=== PATIENT | male | born 1995 | race Caucasian/White ===

== ENCOUNTER 2020-01-29 08:53 | Emergency (ER) | payer BC ==
[~2020-01-29] VITALS: Ht 180.3 cm; Wt 86.2 kg
--- NOTE | 2020-01-29 09:12 | NUR ---
Pt c/o dyspnea increasing over last 3 days, pt bought OTC inhailer which helped somewhat until yesterday, also intermittant dry cough. Pt has occasional chest "tightness" but denies dizziness, fever, n/v, no other complaints, no distress noted.
--- NOTE | 2020-01-29 09:57 | NUR ---
Swabed pt for covid, took to lab.
[2020-01-29 10:06] LABS: BASOPHILS # (AUTO) 0.1 K/uL (0.0-8.0); BASOPHILS % (AUTO) 0.5 % (0.0-2.0); EOSINOPHILS # (AUTO) 0.1 K/uL (0.0-0.7); EOSINOPHILS % (AUTO) 0.8 % (0.0-7.0); HEMATOCRIT 42.7 % (36.7-47.1); HEMOGLOBIN 14.8 g/dL (12.5-16.3); LYMPHOCYTES # (AUTO) 2.2 K/uL (20.0-40.0); LYMPHOCYTES % (AUTO) 15.9 % (20.5-51.5); MEAN CORPUSCULAR HEMOGLOBIN 30.1 uug (23.8-33.4); MEAN CORPUSCULAR HGB CONC 35 g/dL (32.5-36.3); MEAN CORPUSCULAR VOLUME 86.9 fL (73.0-96.2); MONOCYTES # (AUTO) 0.6 K/uL (2.0-10.0); MONOCYTES % (AUTO) 4.4 % (0.0-11.0); NEUTROPHILS # (AUTO) 10.9 K/uL (1.8-8.9); NEUTROPHILS % (AUTO) 78.4 % (38.5-71.5); PLATELET COUNT (AUTO) 189 K/uL (152-348); RED BLOOD CELL COUNT(AUTO) 4.92 MIL/uL (4.06-5.63)
[2020-01-29 10:28] LABS: CREATININE 1.2 mg/dL (0.6-1.3); POTASSIUM 4.3 mmol/L (3.5-5.1)
[2020-01-29 10:41] LABS: BILIRUBIN,TOTAL 0.6 mg/dL (0.2-1.0); TOTAL PROTEIN, SERUM 7.6 g/dL (6.4-8.2)
[2020-01-29] MEDS ORDERED: AZIT250T PO (10:51)
[2020-01-29] MEDS ORDERED: IPRA12.9 INH (10:51)
--- NOTE | 2020-01-29 11:12 | NUR ---
RX called to pharmacy by ALEJANDRO Salamanca. Gave pt d/c instructions, pt verbalized understanding.
[2020-01-29 11:23] VITALS: BP 122/47
== END 2020-01-29 11:25 | disposition home or self-care (01) ==
LOC: ER 08:53
DX: R06.02 Shortness of breath (principal); R03.0 Elevated blood-pressure reading, without diagnosis of hypertension; Z11.59 Encounter for screening for other viral diseases
CPT/HCPCS: 36415; 71045; 80053; 83880; 84145; 84484; 85025; 85379; 93005; 99285; U0003; 70030-TC; A4663

== ENCOUNTER 2020-04-08 18:24 | Emergency (ER) | payer BC ==
[~2020-04-08] VITALS: Ht 180.3 cm; Wt 98.0 kg
[~2020-04-08 18:24] MED LIST: AZIT250T PO; IPRA12.9 INH
[2020-04-08] MEDS ORDERED: IV NORMAL SALINE 1000 ML BAG IV ONE (19:00)
--- NOTE | 2020-04-08 19:00 | NUR ---
PATIENT ARRIVED AT THE ER WITH C/O OF THROAT PAIN, CHOKING SENSATION X 3DAYS.
[2020-04-08] MEDS ORDERED: IV NORMAL SALINE 250 ML IV ONE (19:09)
[2020-04-08] MEDS ORDERED: IOHEXOL 300MG/ML 100 ML INFUS..BTL ONE (19:09)
[2020-04-08] MEDS ORDERED: SWABABLE VALVE TRANSFER SET EA MC ONE (19:09)
[2020-04-08 19:20] LABS: BASOPHILS # (AUTO) 0.1 K/uL (0.0-8.0); BASOPHILS % (AUTO) 0.9 % (0.0-2.0); EOSINOPHILS # (AUTO) 0.4 K/uL (0.0-0.7); HEMATOCRIT 42.4 % (36.7-47.1); HEMOGLOBIN 14.4 g/dL (12.5-16.3); LYMPHOCYTES % (AUTO) 33.4 % (20.5-51.5); MEAN CORPUSCULAR HEMOGLOBIN 29.6 uug (23.8-33.4); MEAN CORPUSCULAR HGB CONC 34 g/dL (32.5-36.3); MEAN CORPUSCULAR VOLUME 87.2 fL (73.0-96.2); MONOCYTES # (AUTO) 0.7 K/uL (2.0-10.0); MONOCYTES % (AUTO) 5.9 % (0.0-11.0); NEUTROPHILS # (AUTO) 6.8 K/uL (1.8-8.9); NEUTROPHILS % (AUTO) 56.8 % (38.5-71.5); PLATELET COUNT (AUTO) 203 K/uL (152-348); RED BLOOD CELL COUNT(AUTO) 4.86 MIL/uL (4.06-5.63)
[2020-04-08 19:40] LABS: BILIRUBIN,DIRECT 0.1 mg/dL (0.0-0.2); BILIRUBIN,TOTAL 0.3 mg/dL (0.2-1.0); CREATININE 1.1 mg/dL (0.6-1.3); POTASSIUM 3.7 mmol/L (3.5-5.1); TOTAL PROTEIN, SERUM 7.1 g/dL (6.4-8.2)
[2020-04-08] MEDS ORDERED: MORPHINE SULFATE 2 MG/1 ML DISP.SYRIN IV ONE (19:45)
[2020-04-08] MEDS ORDERED: ONDANSETRON 4 MG/2 ML VIAL IV ONE (19:45)
[2020-04-08] MEDS ORDERED: MORPHINE SULFATE 2 MG/1 ML DISP.SYRIN ONE (19:56)
[2020-04-08] MEDS ORDERED: ONDANSETRON 4 MG/2 ML VIAL ONE (19:56)
[2020-04-08 20:08] LABS: THYROID STIMULATING HORMONE 3.206 mIU/mL (0.358-3.740)
--- NOTE | 2020-04-08 20:15 | NUR ---
Back fr CT.
--- NOTE | 2020-04-08 20:57 | NUR ---
Patient discharged to home in stable condition. Written and verbal after care instructions given. Patient verbalizes understanding of instructions. Stressed follow up or return to ER for worsening s/s. Pt ambulated out of the ER with steady gait. All belongings with pt.
[2020-04-08 20:59] VITALS: BP 120/69
== END 2020-04-08 20:57 | disposition home or self-care (01) ==
LOC: ER 18:26
DX: J02.9 Acute pharyngitis, unspecified (principal); R09.89 Other specified symptoms and signs involving the circulatory and respiratory systems; D72.829 Elevated white blood cell count, unspecified
CPT/HCPCS: 36415; 70491; 80048; 80076; 82150; 84443; 85025; 96374; 96375; 99285; J2270; J2405; Q9967; A4663; J7030; J7050